=== PATIENT | female | born 1955 | race American Indian/Alaskan Native ===

== ENCOUNTER 2020-08-01 06:37 | Outpatient (CLI) | payer MEDICARE, OTHER ==
[2020-08-01 07:33] LABS: Hematocrit 39.3 % (30.3-42.9); Hemoglobin 13.6 gm/dl (10.1-14.3); Mean Corpuscular HGB Conc 35 % (30-34); Mean Corpuscular Volume 88 fl (79-97); Platelet Count 212 K/mm3 (140-440); Red Blood Count 4.45 M/mm3 (3.65-5.03); Red Cell Distribution Width 13.9 % (13.2-15.2)
[2020-08-01 07:44] LABS: Blood Urea Nitrogen 11 mg/dL (7-17); Calcium 9.1 mg/dL (8.4-10.2); Hemolysis Index 16
[2020-08-01 07:45] LABS: INR 0.95 (0.87-1.13); Partial Thromboplastin Time 27.4 Sec. (24.2-36.6)
[2020-08-01 07:51] LABS: BUN/Creatinine Ratio 16
[2020-08-01] MEDS ORDERED: SODIUM CHLORIDE 0.9% 500 ML 500 ML IV SCH (08:00)
--- NOTE | 2020-08-01 08:33 | Anesthesia Consultation ---
Anesthesia Consult and Med Hx Date of service: 08/01/20 - Airway Anesthetic Teeth Evaluation: Dentures (Upper full plate) ROM Head & Neck: Adequate Mental/Hyoid Distance: Inadequate Mallampati Class: Class II Intubation Access Assessment: Probably Good - Pulmonary Exam CTA: Yes - Pre-Operative Health Status ASA Pre-Surgery Classification: ASA3 Proposed Anesthetic Plan: MAC - Pulmonary Hx Smoking: No Hx Asthma: Yes Hx Respiratory Symptoms: No Home Oxygen Therapy: No Hx Sleep Apnea: No (Snores) - Cardiovascular System Hx Hypertension: Yes Hx Heart Attack/AMI: No Hx Angina: No Hx Pacemaker: No - Central Nervous System CVA: Yes (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
--- NOTE | 2020-08-01 08:37 | Short Stay Summary ---
Short Stay Documentation Date of service: 08/01/20 - History Principal diagnosis: PFO H&P: obtained from office Past Medical History: diabetes, hypertension, hyperlipidemia, stroke (+PFO), other (asthma) Past Surgical History: no valve replacement, no CABG, no PTCA Social history: no smoking, no alcohol abuse - Allergies and Medications Current Medications: Allergies No Known Allergies Allergy (Unverified 12/22/12 01:15) Home Medications Medication Instructions Recorded Confirmed Last Taken Type Albuterol Sulfate [Proventil Hfa] 6.7 gm IH TID 08/01/20 08/01/20 07/31/20 History 2 puffs Ascorbic Acid/Ascorbate Sodium 1 tab PO DAILY 08/01/20 08/01/20 07/31/20 History [Vit C-Blanca Hips 500 mg Chew Tb] 500 mg Aspirin EC [Ecotrin] 325 mg PO DAILY 08/01/20 08/01/20 07/31/20 History 325 mg AtorvaSTATin [Lipitor] 40 mg PO HS 08/01/20 08/01/20 07/31/20 History 40 mg Citalopram [Celexa] 40 mg PO DAILY 08/01/20 08/01/20 07/31/20 History 40 mg Ergocalciferol (Vitamin D2) 50,000 units PO QWEEK 08/01/20 08/01/20 07/28/20 History [Vitamin D2] 29445 units Meloxicam [Mobic] 15 mg PO DAILY 08/01/20 08/01/20 07/31/20 History 15 mg Metoprolol [Lopressor TAB] 100 mg PO BID 08/01/20 08/01/20 07/31/20 History 100 mg Multivit-Min/Iron/Folic Acid/K 1 cap PO DAILY 08/01/20 08/01/20 07/31/20 History [Multi For Her Softgel] 1 cap Naproxen [Naprosyn TAB] 500 mg PO BID 08/01/20 08/01/20 07/31/20 History 500 mg Pantoprazole Sodium 40 mg PO DAILY 08/01/20 08/01/20 07/31/20 History 40 mg Vit E/B1/B6/FA/B12/Ala/Coq10 1 tab PO DAILY 08/01/20 08/01/20 07/31/20 History 1 tab amLODIPine 5 mg PO DAILY 08/01/20 08/01/20 07/31/20 History 5 mg Active Medications Benzocaine (Benzocaine 20% [place] 0.5 Ml Unit Dose) 3 spray MM PREOP NR Stop: 08/01/20 18:00 Sodium Chloride (Nacl 0.9% 500 Ml) 500 mls @ 50 mls/hr IV DIRECT LUTHER Last Admin: 08/01/20 08:01 Dose: 50 mls/hr Documented by: - Physical exam General appearance: no acute distress Integumentary: no rash HEENT: Atraumatic Lungs: Clear to auscultation Heart: Normal S1, Normal S2, No murmurs Gastrointestinal: normal Extremities: pulses intact, No edema, normal temperature, normal color Neurological: Normal tone, Sensation intact - Brief post op/procedure progress note Date of procedure: 08/01/20 Pre-op diagnosis: PFO Surgeon: ANNALISE FABIAN Estimated blood loss: minimal Pathology: none Condition: stable - Hospital course Hospital course: Pt is a 64-year-old female with a hx of recent ischemic CVA (04/2020) and suspected PFO who presented for MO, which was indeed suggestive of PFO. See MO report for detailed findings. Pt tolerated procedure well. Currently stable with no complaints. - Disposition Condition at discharge: Good Disposition: DC-01 TO HOME OR SELFCARE - Discharge Diagnoses (1) H/O: CVA (cerebrovascular accident) Status: Chronic (2) PFO (patent foramen ovale) Status: Chronic Short Stay Discharge Plan Activity: no restrictions Diet: low cholesterol, diabetic Follow up with: REY VARGAS MD [Primary Care Provider] - 7 Days WILLIAM MATTHEWS MD [Staff Physician] - 14 Days
--- NOTE | 2020-08-01 08:37 | Anesthesia Day of Surgery ---
Anesthesia Day of Surgery - Day of Surgery Patient Examined: Yes Patient H&P Reviewed: Yes Patient is NPO: Yes Beta Blockers: No Cardiac Clearance: No Pulmonary Clearance: No Vivek's Test: N/A
[2020-08-01] MEDS ORDERED: propofoL 200 MG/20 ML VIAL IV ONE ×3 (08:43→08:44)
[2020-08-01] MEDS ORDERED: LIDOCAINE MPF (2%) 20 MG/1 ML VIAL 5 ML ONE (08:44)
[2020-08-01] MEDS ORDERED: BENZOCAINE 20% TOP SPRAY 0.5 ML UNIT DOSE MM NR (09:00)
[2020-08-01 09:11] LABS: Band Neutrophils # (Manual) 0.1 K/mm3; Platelet Estimate Consistent w Auto; RBC Morphology Normal; Total Cells Counted 100
--- NOTE | 2020-08-01 11:03 | Post Anesthesia Evaluation ---
- Post Anesthesia Evaluation Patient Participated: Yes Airway Patent: Yes Stable Respiratory Function: Yes Nausea/Vomiting: No Temp > 96.8F: Yes Pain Manageable: Yes Adequeate Hydration: Yes Anesthesia Complications: No
[2020-08-01 11:09] VITALS: BP 142/93
== END 2020-08-01 11:45 | disposition home or self-care (01) ==
LOC: CATHLABREC 06:37
PROVIDERS: ATTEND Internal Medicine
DX: I63.9 Cerebral infarction, unspecified (principal); G45.9 Transient cerebral ischemic attack, unspecified; Z20.822 Contact with and (suspected) exposure to COVID-19; I51.7 Cardiomegaly; I10 Essential (primary) hypertension; E78.49 Other hyperlipidemia; E11.9 Type 2 diabetes mellitus without complications; E78.00 Pure hypercholesterolemia, unspecified; J45.909 Unspecified asthma, uncomplicated; K21.9 Gastro-esophageal reflux disease without esophagitis; E66.9 Obesity, unspecified; M19.90 Unspecified osteoarthritis, unspecified site; F32.9 Major depressive disorder, single episode, unspecified; D64.9 Anemia, unspecified; Z83.3 Family history of diabetes mellitus; Z68.31 Body mass index [BMI] 31.0-31.9, adult; Z79.899 Other long term (current) drug therapy; Z79.82 Long term (current) use of aspirin; Z86.718 Personal history of other venous thrombosis and embolism; Z90.710 Acquired absence of both cervix and uterus; Z98.890 Other specified postprocedural states; Z80.8 Family history of malignant neoplasm of other organs or systems; Z82.49 Family history of ischemic heart disease and other diseases of the circulatory system
CPT/HCPCS: 36415; 80048; 85007; 85025; 85610; 85730; 93312; 93320; 93325; J2704; J7040; U0003